=== PATIENT | male | born 1955 | race African-American/Black ===

== ENCOUNTER 2023-11-03 03:07 | Emergency (ER) | payer MEDICARE, MEDICAID, SELFPAY ==
--- NOTE | ~2023-11-03 | XR_ITS ---
EXAMINATION: XR ABDOMEN KUB CLINICAL INDICATION: G-tube placement check. COMPARISON: None available. TECHNIQUE: AP view of the abdomen. FINDINGS: The bowel gas pattern is normal with no evidence of ileus or obstruction. Contrast is seen outlining the stomach and proximal duodenum. No unusual soft tissue calcifications are noted. 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 There is left hip degenerative change. XR/XR KUB IMPRESSION: Contrast is seen outlining the stomach and proximal duodenum. G-tube in place. Overall nonspecific bowel gas pattern.
[2023-11-03 03:25] VITALS: PULSE 56; O2SAT 98
[2023-11-03 03:27] VITALS: BP 121/71; PULSE 51; RESP 16; O2SAT 99; BMI 26.1
--- NOTE | 2023-11-03 03:56 | ED_ITS ---
HPI - General Adult General Chief complaint: General Medical Stated complaint: broken g tube Time Seen by Provider: 11/03/23 03:42 Source: EMS Mode of arrival: EMS History of Present Illness HPI narrative: 68-year-old male who arrives via EMS from [facility] with concerns for a broken G-tube . Related Data Allergies Allergy/AdvReac Type Severity Reaction Status Date / Time acetaminophen [From Percocet] Allergy Unknown Verified 11/03/23 03:37 Cephalosporins Allergy Unknown Verified 11/03/23 03:37 diltiazem Allergy Unknown Verified 11/03/23 03:37 oxycodone [From Percocet] Allergy Unknown Verified 11/03/23 03:37 Sulfa (Sulfonamide Allergy Unknown Verified 11/03/23 03:37 Antibiotics) sulfamethoxazole Allergy Unknown Verified 11/03/23 03:37 [From Bactrim] trimethoprim [From Bactrim] Allergy Unknown Verified 11/03/23 03:37 Review of Systems Review of Systems: Yes Unobtainable due to mental condition PMFSH Past Medical History Source: nursing notes reviewed Onset Date is defined in the Problem List Problems that require an onset date and time if occurred within 24 hrs of arrival to the ED Aortic Dissection and Rupture; Neurologic impairment; Cardiopulmonary Arrest; Endotracheal Intubation; Insertion or Replacement of Mechanical Circulatory Assist Device Social History Social History Unable to assess alcohol history related to: Unable to respond Use of substances other than those prescribed or required for medical reasons: Unable to respond Advance Directives: No Advance Directives Information Provided: Yes Physical Exam ED Vital Signs: Vital Signs - 24 hr 11/03/23 03:27 Pulse Rate 51 Respiratory Rate 16 Blood Pressure 121/71 Pulse Oximetry 99 Oxygen Delivery Method Room Air BMI result Body Mass Index 26.1 VITAL SIGNS: Reviewed. GENERAL: Well nourished, in no acute distress. HEAD: Normocephalic/atraumatic EYES: PERRLA EARS: Ext canals without abnormality LUNGS: Normal breath sounds. No adventitious sounds or accessory muscle use. SpO2<99> CARDIOVASCULAR: Regular rate and rhythm without noted murmurs ABDOMEN: Soft, non-tender, non-distended with bowel sounds, there is 20 [place] med line triple port, and evaluation I do not see any gross abnormality MUSCULOSKELETAL: No tenderness, deformities, or effusions noted on gross inspection. EXTREMITIES: No cyanosis, clubbing or edema. SKIN: Inspection of the skin reveals no rashes NEUROLOGIC: Nonverbal at baseline, eyes closed Medications Administered Discontinued Medications Generic Name Dose Route Start Last Admin Trade Name Cami PRN Reason Stop Dose Admin Diatrizoate Meglum/Diatrizoate Sod 30 ml 11/03/23 04:27 11/03/23 04:27 Diatrizoate Meglumine, Sodium 30 Ml Solution PO 11/03/23 04:28 30 ml ONCE ONE Administration Medical Decision Making Medical Decision Making MDM Narrative: 68-year-old male with history and clinical presentation what appears to be in intact gastrostomy tube. On closer evaluation by a notice that the port is mildly cracked and I facilitated the imaging study to ensure that the port is patent and emptying into the right location. I was able to easily use the 60 cc, slipped tip syringe without leakage of material and on evaluation by the KUB all material is within the stomach. On further investigation we do not carry Medline gastrostomy tubes, the tube still functions well and there should be no difficulty with continuing to administer nutritional feeds while making arrangements for replacement in the outpatient setting. Differential Diagnosis Differential Diagnoses: The differential diagnosis associated with the presentation includes Please see the discussion above Admission/Observation Consideration of admission/observation: Escalation of care including admission/observation considered Please see the discussion above Radiology Impression Discussion of test interpretation with radiology: I have reviewed the radiologist's reading. Radiologist Impression: Please see the discussion above Discharge Plan Discharge Clinical Impression: Attention to gastrostomy tube Patient Disposition: Xfer Other Instructions: How to Use and Care for Your PEG Tube (ED) Additional Instructions: This gastrostomy tube has been evaluated, it is patent, and feeds can be administered without concern for loss of feedings. We do not have the replacement gastrostomy tube for this and request that you make arrangements in the outpatient setting with Gastroenterology. Referrals: MARILUZ THOMAS [Primary Care Provider] -
[2023-11-03] MEDS: Diatrizoate Meglumine, Sodium 30 ML SOLUTION PO (04:27)
[2023-11-03 06:23] VITALS: BP 105/75; PULSE 57; RESP 16; TEMP 36.3; O2SAT 95
== END 2023-11-03 07:52 | disposition other institution (70) ==
PROVIDERS: Emergency Provider Student in an Organized Health Care Education/Training Program; PCP Emergency Medicine
DX: Z43.1 Encounter for attention to gastrostomy (principal)
CPT/HCPCS: 74018; 99283; 99284